=== PATIENT | female | born 1945 | race African-American/Black ===

== ENCOUNTER 2018-11-17 01:32 | Inpatient (IN) ==
--- NOTE | 2018-11-10 18:02 | EKG Report ---
Test Performed on : 11/10/2018 5:44:05 PM Test Reason : PAT Blood Pressure : / mmHG Vent. Rate : 071 BPM Atrial Rate : 071 BPM P-R Int : 152 ms QRS Dur : 078 ms QT Int : 372 ms P-R-T Axes : 030 -25 -07 degrees QTc Int : 404 ms Normal sinus rhythm. Voltage criteria for left ventricular hypertrophy Abnormal ECG When compared with ECG of 22-AUG-2012 06:09, T wave inversion no longer evident in Anterior leads QT has shortened Confirmed by Pascual JACKSON, Shankar Stein ([id number]) on 11/12/2018 9:02:23 AM
[2018-11-10 21:26] LABS: URINE SOURCE CLEAN CATCH
[2018-11-10 21:51] LABS: BILIRUBIN URINE NEGATIVE (NEGATIVE); BLOOD URINE TRACE (NEGATIVE); COLOR YELLOW; GLUCOSE URINE 300 mg/dL (NEGATIVE); KETONE URINE NEGATIVE (NEGATIVE); LEUKOCYTES URINE LARGE (NEGATIVE); NITRITE URINE NEGATIVE (NEGATIVE); PH URINE 5.5; PROTEIN URINE NEGATIVE (NEGATIVE); SP GRAVITY URINE 1.018; TURBIDITY URINE CLEAR (CLEAR); UROBILINOGEN URINE NORMAL (NORMAL)
[2018-11-10 21:53] LABS: UR EPITHELIAL CELLS <10 /HPF (<10); URINE BACTERIA NEGATIVE /HPF; URINE RBC <10 /HPF (<10); URINE WBC TNTC /HPF (<10)
[2018-11-10 21:55] LABS: BASO# 0.02 X1000 (0.0-0.2); BASO% 0.2 % (0.0-0.8); EOS% 2.2 % (0.0-10.0); HEMATOCRIT 40.2 % (37.0-47.0); LYMPH# 3.43 X1000 (1.2-3.4); LYMPH% 38.5 % (20.5-51.1); MCH 28.8 PG (27-31); MCHC 32.3 g/dL (33-37); MCV 89.1 FL (81-99); MONO# 0.52 X1000 (0.11-0.59); MONO% 5.8 % (1.7-9.3); MPV 12.9 FL (7.4-10.4); NEUT# 4.74 X1000 (1.4-6.5); NEUT% 53.3 % (42.2-75.2); PLT 203 X1000 (130-400); RBC 4.51 XMIL (4.2-5.4); RDW 13.5 % (11.5-14.5); WBC 8.91 X1000 (4.8-10.8)
[2018-11-10 22:00] LABS: INR 0.91; PTT 27.4 Seconds (22.3-41.8)
[2018-11-10 22:23] LABS: AGAP 11; BUN 18 mg/dL (8-22); CALCIUM 9.4 mg/dL (8.8-10.2); CHLORIDE 96 mmol/L (98-107); COSMO 279; ESTIMATED GFR > 60; GLUCOSE 231 mg/dL (70-104); POTASSIUM 4.6 mmol/L (3.5-5.1); SODIUM 135 mmol/L (136-145); TCO2 28 mmol/L (25-35)
[2018-11-17] MEDS ORDERED: KEFZOL 1 GM/D5W 2 GM/100 ML IVPB ONE (08:18)
[2018-11-17] MEDS ORDERED: REGLAN ONE (08:18)
[2018-11-17] MEDS ORDERED: PEPCID ONE (08:18)
[2018-11-17] MEDS ORDERED: LYRICA ONE (08:18)
[2018-11-17] MEDS ORDERED: CELEBREX ONE (08:18)
[2018-11-17] MEDS ORDERED: LR 1,000 ML ONE (08:18)
[2018-11-17] MEDS ORDERED: COLACE ONE (08:18)
[2018-11-17] MEDS ORDERED: EXPAREL 1.3% ONE (09:17)
[2018-11-17] MEDS ORDERED: NEOSPORIN G.U. IRRIGANT ONE (09:17)
[2018-11-17] MEDS ORDERED: TORADOL ONE (09:17)
[2018-11-17] MEDS ORDERED: DURAMORPH ONE (09:17)
[2018-11-17] MEDS ORDERED: CYKLOKAPRON 1,000 MG/NS 1,000 MG/100 ML IVPB ONE (09:17)
[2018-11-17] MEDS ORDERED: MARCAINE 0.25% PF ONE (09:17)
[2018-11-17] MEDS ORDERED: SODIUM CHLORIDE 0.9% ONE (09:17)
[2018-11-17] MEDS ORDERED: ROBINUL ONE ×2 (09:23→10:20)
[2018-11-17] MEDS ORDERED: XYLOCAINE-MPF 2% ONE (09:23)
[2018-11-17] MEDS ORDERED: DECADRON ONE (09:23)
[2018-11-17] MEDS ORDERED: ZOFRAN ONE (09:23)
[2018-11-17] MEDS ORDERED: FENTANYL ONE (09:24)
[2018-11-17] MEDS ORDERED: DIPRIVAN 1% ONE (09:24)
[2018-11-17] MEDS ORDERED: OFIRMEV 1000 MG/ISOTONIC SOLN 1,000 MG/100 ML BOTTLE ONE (09:27)
[2018-11-17] MEDS ORDERED: SODIUM CHLORIDE 0.9% 10 ML ONE (11:06)
[2018-11-17] MEDS ORDERED: NEO-SYNEPHRINE ONE (11:06)
[2018-11-17] MEDS ORDERED: NEOSTIGMINE ONE (11:33)
[2018-11-17 11:50] LABS: URINE SOURCE CATH
[2018-11-17 11:55] LABS: BILIRUBIN URINE NEGATIVE (NEGATIVE); BLOOD URINE NEGATIVE (NEGATIVE); COLOR YELLOW; GLUCOSE URINE 70 mg/dL (NEGATIVE); KETONE URINE NEGATIVE (NEGATIVE); LEUKOCYTES URINE NEGATIVE (NEGATIVE); NITRITE URINE NEGATIVE (NEGATIVE); PROTEIN URINE NEGATIVE (NEGATIVE); SP GRAVITY URINE 1.007; TURBIDITY URINE CLEAR (CLEAR); UROBILINOGEN URINE NORMAL (NORMAL)
[2018-11-17 11:57] LABS: UR EPITHELIAL CELLS <10 /HPF (<10); URINE BACTERIA NEGATIVE /HPF; URINE RBC 20-40 /HPF (<10); URINE WBC <10 /HPF (<10)
[2018-11-17] MEDS ORDERED: NS 1,000 ML ONE (12:12)
[2018-11-17] MEDS: DILAUDID ONE ×4 (12:19→12:45)
--- NOTE | 2018-11-17 12:32 | Diag Imaging Result Doc PS360 ---
EXAM: SHOULDER-RIGHT 11/17/2018 HISTORY: post op total shoulder TECHNIQUE: AP portable at 1224 COMMENT: There is a total shoulder arthroplasty. There is no evidence of acute fracture or dislocation. IMPRESSION: Postsurgical changes. Electronically signed by Arnie Marie 11/17/2018 12:30 PM
[2018-11-17] MEDS ORDERED: OXY IR ONE (12:56)
[2018-11-17] MEDS ORDERED: ZOFRAN PO PRN (13:00)
[2018-11-17] MEDS ORDERED: MORPHINE IV PRN ×3 (13:00)
--- NOTE | 2018-11-17 13:01 | OPERATIVE NOTE ---
PROCEDURE DATE: 11/17/2018 PREOPERATIVE DIAGNOSIS: Right glenohumeral arthritis. POSTOPERATIVE DIAGNOSIS: Right glenohumeral arthritis. PROCEDURE: Right reverse total shoulder arthroplasty with DePuy Delta Xtend size 12 press-fit stem, a size 38+ 3 humeral cup, and a 38 eccentric Glenosphere and a standard Metaglene. SURGEON: David Davis MD. COMPOUND MIXER: Kaz Chung. SECOND SPECIAL SYSTEMS TECHNICIAN: Kadeem Cook RN. ANESTHESIA: General. IV FLUIDS: 800 mL lactated Ringer's. ESTIMATED BLOOD LOSS: 250 mL. COMPLICATIONS: None. INDICATION FOR PROCEDURE: The patient is a 73-year-old female with pain and discomfort for the last few months. She does recall a recent fall, and has had increased limited range of motion. MRI was obtained revealing evidence of chronic rotator cuff tear as well as degenerative arthritis of the glenohumeral joint. Given patient's findings, a recommendation to proceed with right reverse total shoulder arthroplasty was offered. Risks and benefits of surgery were explained, including the risks of anesthesia, , bleeding, infection, failure to relieve pain, postop stiffness, nerve injury, blood clots, and other imponderables. All questions were answered. The patient and family wished to proceed with surgery. DETAILS OF OPERATION: The patient was taken to the operating room and placed supine on operating table. Once adequate anesthesia was obtained, patient was placed in semi-Holman beach-chair position. The right shoulder was subsequently prepped and draped in usual sterile fashion. A standard deltopectoral incision made with skin knife. Medial and lateral skin envelopes were developed. Standard medial parapatellar arthrotomy was then performed. A standard deltopectoral incision was made. Hemostasis was obtained using electrocautery. The deltopectoral interval was then developed. Retractors were then placed. The clavipectoral fascia was elevated. A retractor was then placed. An approximately 1 cm medial to the insertion of the subscapularis tendon was released. The head was then dislocated anteriorly, and had significant arthritic changes. There was evidence of a chronic rotator cuff tear. A starting reamer was then passed into the intramedullary canal. This followed by sequential reaming up to a size 12. The intramedullary guide with the proximal humeral cutting block was pinned in position. The proximal humerus was then resected. A protective disk was then placed. The rongeur was used to remove the inferior osteophyte off the proximal humerus. Circumferential dissection was performed with a deep knife at the glenoid after retractors had been placed in position. A guide was then placed in position, and a guide pin was placed. Reaming was then conducted. The central hole was then dilated. The wound was copiously with antibiotic pulsatile lavage. A standard Metaglene was then impacted in position. Three locking screws were placed and 1 nonlocking screw was placed. It appeared to have good purchase. The wound was copiously irrigated once again with antibiotic pulsatile lavage. A 38 Eccentric Glenosphere was then placed with the eccentricity placed inferiorly. Attention then turned to the proximal humerus. The intramedullary guide was placed in position, and the proximal humerus was reamed. Copious irrigation was performed once again with antibiotic pulsatile lavage. A stat size 12 Delta Xtend press-fit stem was impacted and had good fit. Trial cup size then placed 38 +3 humeral cup had excellent stability and range of motion. The trial cup was removed. The wound was copiously once again. This followed by a 38+ 3 humeral cup and impacted on the stem. The shoulder was reduced, and carried through range of motion. It had excellent stability and range of motion. Exparel was placed deep soft tissue. The wound was copiously irrigated. A #2 FiberWire was used to repair the subscapularis tendon. Irrigation performed once again. The remaining Exparel was placed in deep soft tissue, as well as the subcutaneous tissue. A final irrigation was then performed. A 2-0 Vicryl was then placed in the subcutaneous tissue followed by running 2-0 Prolene. Benzoin and Steri-Strips were applied. Adaptic, sterile 4 x 4's, ABD pad, and tape was applied to the right shoulder. This was followed by a shoulder immobilizer. All counts were correct. The patient tolerated the procedure well, and was transferred to the recovery room in stable condition. cc: David Davis MD
[2018-11-17] MEDS: NS 1,000 ML IV SCH (13:54)
[2018-11-17] MEDS ORDERED: CYKLOKAPRON 1,000 MG in NS 100 ML IV ONE (16:20)
[2018-11-17] MEDS ORDERED: NEXIUM PO PRN (16:27)
[2018-11-17] MEDS: OXY IR PO PRN ×2 (16:58→20:55)
[2018-11-17] MEDS: KEFZOL 2 GM/D5W 2 GM/50 ML IVPB IV SCH (18:49)
[2018-11-17] MEDS: GLUCOPHAGE PO SCH (18:49)
[2018-11-17] MEDS: PERIDEX MT SCH (20:54)
[2018-11-17] MEDS: COLACE PO SCH (20:54)
[2018-11-18] MEDS: OXY IR PO PRN ×4 (02:44→13:32)
[2018-11-18] MEDS: NS 1,000 ML IV SCH (02:45)
[2018-11-18] MEDS: KEFZOL 2 GM/D5W 2 GM/50 ML IVPB IV SCH (02:46)
[2018-11-18 06:14] LABS: HEMATOCRIT 34.3 % (37.0-47.0); HEMOGLOBIN 10.8 g/dL (12.0-16.0)
[2018-11-18 06:28] LABS: AGAP 11; BUN 18 mg/dL (8-22); CALCIUM 8.2 mg/dL (8.8-10.2); CHLORIDE 96 mmol/L (98-107); COSMO 273; CREATININE 0.8 mg/dL (0.5-0.9); ESTIMATED GFR > 60; GLUCOSE 224 mg/dL (70-104); POTASSIUM 4.6 mmol/L (3.5-5.1); SODIUM 132 mmol/L (136-145); TCO2 25 mmol/L (25-35)
[2018-11-18] MEDS ORDERED: AMARYL PO SCH (08:00)
[2018-11-18] MEDS ORDERED: HYDROCHLOROTHIAZIDE PO SCH (09:00)
[2018-11-18] MEDS ORDERED: ASPIRIN EC PO SCH (09:00)
[2018-11-18] MEDS ORDERED: LIPITOR PO SCH (09:00)
[2018-11-18] MEDS ORDERED: MICARDIS PO SCH (09:00)
[2018-11-18] MEDS: GLUCOPHAGE PO SCH (10:27)
[2018-11-18] MEDS: COLACE PO SCH (10:27)
[2018-11-18] MEDS: PERIDEX MT SCH (10:30)
--- NOTE | 2018-11-18 11:34 | ORTHOPAEDICS PROGRESS NOTE ---
DATE: 11/18/2018 SUBJECTIVE: The patient is a pleasant, 73-year-old female, who is 1 day status post right reverse total shoulder arthroplasty. She is currently resting comfortably. PHYSICAL EXAMINATION: The patient's right upper extremity with dressing is intact. She is neurovascularly intact distally. She has good shredder tender peat strength. LABORATORY DATA: Her hemoglobin is 10.8, hematocrit 34.3. IMPRESSION: Postoperative day #1, status post right reverse shoulder arthroplasty. PLAN: At this point, will change her dressing, Hep-Lock her IV. Will plan on discharging her home after physical therapy. cc: David Davis MD
[2018-11-18 12:02] VITALS: BP 136/53
== END 2018-11-18 15:17 | disposition home health service (06) | DRG 483 ==
LOC: SURHOLD 01:32 → 4N 09:55
PROVIDERS: ADMIT Orthopaedic Surgery Adult Reconstructive Orthopaedic Surgery; ATTEND Orthopaedic Surgery Adult Reconstructive Orthopaedic Surgery
CPT/HCPCS: 73030; 80048; 81001; 82948; 85014; 85018; 85025; 85610; 85730; 86850; 86900; 86901; 88305; 88311; 93005; 93010; 94761; 94799; 97110; 97162; A9270; C9290; J0131; J0690; J1100; J1170; J1885; J2274; J2275; J2370; J2405; J3010; J7030; J7120; Q9974; S0020; XXXXX